=== PATIENT | male | born 1950 | race Caucasian/White ===

== ENCOUNTER 2019-07-05 15:18 | Inpatient (IN) | payer MEDICARE, OTHER ==
[~2019-07-05] VITALS: Ht 172.7 cm; Wt 77.7 kg
[~2019-07-05 15:18] MED LIST: ACET200V11 PO; ARGI500C9 PO; ASPI-611 PO; CARV3.12 PO; CLOP75TA35 PO; FLO0.4C PO; INSU100V36 SQ; LANTUS SQ; LISI30TA4 PO; NITR0.4T48 SL; ZINC50TA4 PO
[2019-07-05 19:35] VITALS: BP 162/91
[2019-07-05] MEDS ORDERED: ondansetron/PF 4mg/2ml inj IV PRN (19:55)
[2019-07-05 21:05] LABS: BASOPHILS % (AUTO) 0.7 % (0-1); EOSINOPHILS # (AUTO) 0.1 X10'3 (0-0.9); HEMOGLOBIN 15.7 g/dl (14.0-17.9); WHITE BLOOD COUNT 6.7 X10'3 (4.5-11.0)
[2019-07-05 21:07] LABS: EOSINOPHILS % (AUTO) 1.1 % (0-6); HEMATOCRIT 48.1 % (42.0-52.0); LYMPHOCYTES # (AUTO) 0.8 X10'3 (1.1-4.8); LYMPHOCYTES % (AUTO) 11.2 % (21-51); MEAN CORPUSCULAR HEMOGLOBIN 25.4 PG (27.0-31.0); MEAN CORPUSCULAR HGB CONC 32.6 g/dL (33.0-36.5); MEAN CORPUSCULAR VOLUME 77.9 FL (78-98); MEAN PLATELET VOLUME 10.1 FL (7.4-10.4); MONOCYTES # (AUTO) 0.8 X10'3 (0-0.9); MONOCYTES % (AUTO) 11.3 % (2-12); NEUTROPHILS # (AUTO) 5.1 X10'3 (1.8-7.7); NEUTROPHILS % (AUTO) 75.7 % (42-75); PLATELET COUNT 157 X10'3 (140-440); RED BLOOD COUNT 6.17 X10'6 (4.70-6.10); RED CELL DISTRIBUTION WIDTH 18.6 % (11.5-14.5)
[2019-07-05 21:12] LABS: ALBUMIN 3.3 G/DL (3.4-5.0); ANION GAP 7 (8-16); BLOOD UREA NITROGEN 87 MG/DL (7-18); BUN/CREATININE RATIO 38.7 (5.4-32.0); CALCIUM 9.3 MG/DL (8.5-10.1); CHLORIDE 105 MMOL/L (99-107); CREATININE 2.25 MG/DL (0.60-1.10); GLUCOSE 125 MG/DL (70-104); POTASSIUM 4.7 MMOL/L (3.5-5.1); SODIUM 142 MMOL/L (135-145); TOTAL CARBON DIOXIDE 30.4 MMOL/L (24-32); eGFR 29 ML/MIN
[2019-07-05 21:38] LABS: ANISOCYTOSIS 1+; MICROCYTOSIS 1+; PLATELET ESTIMATE NORMAL
[2019-07-05 22:00] VITALS: BP 148/85
[2019-07-05 22:04] LABS: HEMOGLOBIN A1C 8.4 % (4.5-6.2)
[2019-07-06 02:00] VITALS: BP 140/87
[2019-07-06] MEDS ORDERED: magnesium 4gm in 100ml NS 100 ML IV PRN (03:50)
[2019-07-06] MEDS ORDERED: ondansetron/PF 4mg/2ml inj IV PRN (03:50)
[2019-07-06] MEDS ORDERED: HYDROcodone/acetaminophen 5mg/325mg tablet PO PRN (03:50)
[2019-07-06] MEDS ORDERED: magnesium Cl slow-release 64mg tablet PO PRN (03:50)
[2019-07-06] MEDS ORDERED: acetaminophen 325mg tablet PO PRN ×2 (03:50)
[2019-07-06] MEDS ORDERED: magnesium 2GM in 50ml NS 50 ML IV PRN (03:50)
[2019-07-06] MEDS ORDERED: potassium CL 10mEq/100ml bag 100 ML IV PRN ×2 (03:50)
[2019-07-06] MEDS ORDERED: potassium Cl 20 mEq SR tablet PO PRN ×2 (03:50)
--- NOTE | 2019-07-06 06:29 | NUR ---
Patient in room PCU 3024. I have received report from JASKARAN Antoine and had the opportunity to ask questions and assume patient care. Patient asleep in bed and in no acute distress.
[2019-07-06 07:00] VITALS: BP 128/81
[2019-07-06] MEDS: K and/or MAG REPLACEMENT MC SCH ×2 (07:29→20:00)
[2019-07-06] MEDS: furosemide 40mg/4ml inj IV SCH ×2 (07:32→20:53)
[2019-07-06] MEDS: heparin, porcine 5000 units/ml vial SQ SCH ×2 (07:34→20:52)
[2019-07-06] MEDS: docusate sod 100mg capsule PO SCH ×3 (07:34→20:52)
[2019-07-06] MEDS: carvedilol 6.25mg tablet PO SCH ×2 (09:46→20:52)
[2019-07-06 11:00] VITALS: BP 123/70
[2019-07-06 11:08] LABS: ALBUMIN 3.1 G/DL (3.4-5.0); ANION GAP 7 (8-16); BLOOD UREA NITROGEN 86 MG/DL (7-18); BUN/CREATININE RATIO 41.3 (5.4-32.0); CALCIUM 8.9 MG/DL (8.5-10.1); CHLORIDE 106 MMOL/L (99-107); CREATININE 2.08 MG/DL (0.60-1.10); GLUCOSE 164 MG/DL (70-104); POTASSIUM 4.9 MMOL/L (3.5-5.1); SODIUM 143 MMOL/L (135-145); TOTAL CARBON DIOXIDE 30.5 MMOL/L (24-32); eGFR 32 ML/MIN
--- NOTE | 2019-07-06 11:31 | NUR ---
Paged Dr. Sims regarding starting patient on hyper/hypoglycemia protocol and to review the patient's medication reconciliation. PAGER ID: [phone] MESSAGE: [phone]. Norris Bell. Can you please review patient's medication reconciliation? And can we start him on the hyper/hypoglycemia protocol? Thank you. Natali JESSICA x [phone]
--- NOTE | 2019-07-06 12:39 | NUR ---
Paged Dr. Sims regarding patient's EF PAGER ID: [phone] MESSAGE: [phone]. Norris Bell. Per shampoo technician, patient's EF is 35%. Thank you. Natali luna [phone]
[2019-07-06] MEDS ORDERED: dextrose 50%-water 50ml dispensing syringe IV PRN ×2 (13:35)
[2019-07-06] MEDS ORDERED: dextrose ORAL solution 15 GM/59 ML bottle PO PRN ×2 (13:35)
[2019-07-06] MEDS ORDERED: glucagon, human recombinant 1mg kit SUBCUT PRN (13:35)
[2019-07-06] MEDS ORDERED: insulin Lispro (HumaLOG) vial - multi-dose SQ SCH (13:35)
[2019-07-06] MEDS ORDERED: MESSAGE TO PHARMACY PO ONE (13:35)
[2019-07-06 15:00] VITALS: BP 120/78
--- NOTE | 2019-07-06 16:00 | NUR ---
DM consult: Pt with A1c 8.4 seen at bedside. Pt reports he sees his PCP for DM management however is hoping to establish an aerial survey technician. Pt reports taking his DM meds per rx and states he checks his BG levels 2-3 times a day. Pt provided with written and verbal DM education with referral to outpatient DM class and RD contact information. RD d/w CM patient's request for information on establishing an aerial survey technician, per CM pt needs to get a referral from PCP and can get additional information by attending the outpatient DM class, d/w patient. Pt endorses a good appetite which is evident with documented 100% PO intake at breakfast this morning. Lunch tray visible during RD visit noted to be about 75% consumed and pt still eating. Pt denies additional food at this time. Noted that patient's diet has been completed after a 1.2 L fluid restriction was ordered, d/w RN. Pt reports BM this morning. Will continue to follow. Addendum: 07/06/19 at [address] Amended: Links added.
[2019-07-06] MEDS ORDERED: ALLO100T PO (16:12)
[2019-07-06] MEDS ORDERED: FURO20TA4 PO (16:12)
[2019-07-06] MEDS ORDERED: METO-395 PO (16:12)
[2019-07-06] MEDS ORDERED: GLIP5TAB13 PO (16:12)
[2019-07-06] MEDS ORDERED: ATOR40TA72 PO (16:12)
[2019-07-06] MEDS ORDERED: ISOS30TA6 PO (16:12)
[2019-07-06] MEDS ORDERED: TRAZ-256 PO (16:19)
[2019-07-06] MEDS ORDERED: POTA-82 PO (16:27)
--- NOTE | 2019-07-06 18:25 | NUR ---
Problems reprioritized. Patient report given, questions answered & plan of care reviewed with JASKARAN Antoine. Patient stable at transfer of care.
[2019-07-06 19:00] VITALS: BP 142/83
[2019-07-06 20:18] LABS: TOTAL PROTEIN,URINE RANDOM 159.3 MG/DL
[2019-07-06 20:26] LABS: CLARITY,URINE CLEAR (Clear); COLOR,URINE YELLOW (Yellow); GLUCOSE, URINE NEGATIVE (Neg); KETONES,URINE NEGATIVE (Neg); LEUKOCYTE ESTERASE ,URINE NEGATIVE (Neg); NITRITES, URINE NEGATIVE (Neg); OCCULT BLOOD,URINE SMALL (Neg); PH,URINE 5.5 (4.8-8.0); PROTEIN,URINE 100 mg/dl (Neg); UROBILINOGEN,URINE 0.2 E.U/dL (0.2-1.0)
[2019-07-06 20:28] LABS: UA COLLECTION TYPE CLN CATCH MIDSTREAM
[2019-07-06 20:30] LABS: BACTERIA,URINE NONE SEEN /HPF (Neg); RBC,URINE 0-2 /HPF (0-2); SQUAMOUS EPITHELIAL CELL,UR NONE SEEN /LPF (FEW); WBC,URINE NONE SEEN /HPF (0-4)
[2019-07-06] MEDS: insulin glargine (Lantus) pen - multi-dose SQ SCH (21:00)
[2019-07-06 21:27] LABS: UA EOSINOPHILS NO EOS /HPF
[2019-07-06 23:00] VITALS: BP 138/79
[2019-07-07 03:00] VITALS: BP 133/89
--- NOTE | 2019-07-07 06:06 | NUR ---
Patient in room PCU 3024. I have received report from Mike Antoine and had the opportunity to ask questions and assume patient care.
[2019-07-07 06:12] LABS: BASOPHILS # (AUTO) 0.1 X10'3 (0-0.2); BASOPHILS % (AUTO) 0.9 % (0-1); EOSINOPHILS # (AUTO) 0.1 X10'3 (0-0.9); EOSINOPHILS % (AUTO) 1.8 % (0-6); HEMATOCRIT 44.1 % (42.0-52.0); HEMOGLOBIN 14.5 g/dl (14.0-17.9); LYMPHOCYTES # (AUTO) 0.8 X10'3 (1.1-4.8); LYMPHOCYTES % (AUTO) 11.5 % (21-51); MEAN CORPUSCULAR HEMOGLOBIN 25.5 PG (27.0-31.0); MEAN CORPUSCULAR HGB CONC 32.8 g/dL (33.0-36.5); MEAN CORPUSCULAR VOLUME 77.6 FL (78-98); MEAN PLATELET VOLUME 10.3 FL (7.4-10.4); MONOCYTES # (AUTO) 0.8 X10'3 (0-0.9); MONOCYTES % (AUTO) 11.5 % (2-12); NEUTROPHILS % (AUTO) 74.3 % (42-75); PLATELET COUNT 121 X10'3 (140-440); RED BLOOD COUNT 5.68 X10'6 (4.70-6.10); RED CELL DISTRIBUTION WIDTH 18.4 % (11.5-14.5); WHITE BLOOD COUNT 6.7 X10'3 (4.5-11.0)
[2019-07-07 06:56] LABS: ALBUMIN 2.9 G/DL (3.4-5.0); ANION GAP 8 (8-16); ANISOCYTOSIS 2+; BLOOD UREA NITROGEN 86 MG/DL (7-18); CALCIUM 9.2 MG/DL (8.5-10.1); CHLORIDE 107 MMOL/L (99-107); GLUCOSE 127 MG/DL (70-104); LARGE PLATELETS FEW; MAGNESIUM 2.3 MG/DL (1.5-2.4); PLATELET ESTIMATE DECREASED; SODIUM 144 MMOL/L (135-145); TOTAL CARBON DIOXIDE 29.4 MMOL/L (24-32); eGFR 32 ML/MIN
[2019-07-07 06:57] LABS: MICROCYTOSIS 1+
[2019-07-07 07:00] VITALS: BP 126/72
[2019-07-07 07:14] LABS: POTASSIUM 5.1 MMOL/L (3.5-5.1)
[2019-07-07] MEDS: heparin, porcine 5000 units/ml vial SQ SCH ×3 (08:00→19:16)
[2019-07-07] MEDS: carvedilol 6.25mg tablet PO SCH ×2 (08:35→19:11)
[2019-07-07] MEDS: docusate sod 100mg capsule PO SCH ×2 (08:35→19:13)
[2019-07-07] MEDS: furosemide 40mg/4ml inj IV SCH ×2 (08:42→16:52)
[2019-07-07] MEDS: K and/or MAG REPLACEMENT MC SCH ×2 (08:46→20:00)
[2019-07-07 11:00] VITALS: BP 129/63
[2019-07-07] MEDS: mineral oil/petrolatum, white cream 113gm jar TP SCH (14:00)
[2019-07-07 15:00] VITALS: BP 128/71
[2019-07-07 16:28] LABS: RHEUM FACTOR QUAL REFLEX TITER NEGATIVE (Neg)
--- NOTE | 2019-07-07 18:29 | NUR ---
Problems reprioritized. Patient report given, questions answered & plan of care reviewed with JASKARAN Pinon.
--- NOTE | 2019-07-07 18:30 | NUR ---
Patient in room PCU 3024. I have received report from Ailyn JESSICA and had the opportunity to ask questions and assume patient care.
[2019-07-07 19:00] VITALS: BP 137/75
[2019-07-07] MEDS: insulin glargine (Lantus) pen - multi-dose SQ SCH (21:00)
[2019-07-07 23:00] VITALS: BP 105/55
[2019-07-08 03:00] VITALS: BP 115/65
--- NOTE | 2019-07-08 05:08 | NUR ---
Pt states he has had zero urinary output this shift w/ a BM. Bladder scan revealed 245ml, pt states he has no urge or bladder discomfort. Will continue to monitor. Addendum: 07/08/19 at 0512 by Zi Schneider RN In correct patient.
--- NOTE | 2019-07-08 06:04 | NUR ---
Patient in room PCU 3024. I have received report from JASKARAN Pinon and had the opportunity to ask questions and assume patient care.
--- NOTE | 2019-07-08 06:17 | NUR ---
Problems reprioritized. Patient report given, questions answered & plan of care reviewed with Ailyn JESSICA
[2019-07-08 06:19] LABS: EOSINOPHILS # (AUTO) 0.2 X10'3 (0-0.9); EOSINOPHILS % (AUTO) 2.7 % (0-6); LYMPHOCYTES # (AUTO) 0.7 X10'3 (1.1-4.8); MONOCYTES # (AUTO) 0.6 X10'3 (0-0.9); RED CELL DISTRIBUTION WIDTH 18.3 % (11.5-14.5)
[2019-07-08 06:23] LABS: BASOPHILS # (AUTO) 0.1 X10'3 (0-0.2); BASOPHILS % (AUTO) 0.9 % (0-1); HEMATOCRIT 42.3 % (42.0-52.0); HEMOGLOBIN 13.9 g/dl (14.0-17.9); LYMPHOCYTES % (AUTO) 11.7 % (21-51); MEAN CORPUSCULAR HEMOGLOBIN 25.4 PG (27.0-31.0); MEAN CORPUSCULAR HGB CONC 32.8 g/dL (33.0-36.5); MEAN CORPUSCULAR VOLUME 77.7 FL (78-98); MEAN PLATELET VOLUME 10.8 FL (7.4-10.4); MONOCYTES % (AUTO) 10.6 % (2-12); NEUTROPHILS # (AUTO) 4.4 X10'3 (1.8-7.7); NEUTROPHILS % (AUTO) 74.1 % (42-75); PLATELET COUNT 127 X10'3 (140-440); RED BLOOD COUNT 5.45 X10'6 (4.70-6.10); WHITE BLOOD COUNT 5.9 X10'3 (4.5-11.0)
[2019-07-08 06:31] LABS: ALBUMIN 2.6 G/DL (3.4-5.0); ANION GAP 9 (8-16); BLOOD UREA NITROGEN 89 MG/DL (7-18); BUN/CREATININE RATIO 42.2 (5.4-32.0); CALCIUM 9.1 MG/DL (8.5-10.1); CHLORIDE 109 MMOL/L (99-107); CREATININE 2.11 MG/DL (0.60-1.10); MAGNESIUM 2.2 MG/DL (1.5-2.4); POTASSIUM 4.2 MMOL/L (3.5-5.1); SODIUM 146 MMOL/L (135-145); TOTAL CARBON DIOXIDE 28.2 MMOL/L (24-32); eGFR 31 ML/MIN
[2019-07-08 06:35] LABS: GLUCOSE 46 MG/DL (70-104)
--- NOTE | 2019-07-08 06:37 | NUR ---
Paged Kerri POZO, anirudh PAGER ID: [phone] MESSAGE: [phone]: Norris Bell has a critical glucose of 46. -Ailyn [phone]
[2019-07-08 07:00] VITALS: BP 129/80
[2019-07-08] MEDS: docusate sod 100mg capsule PO SCH (07:47)
[2019-07-08] MEDS: carvedilol 6.25mg tablet PO SCH (07:50)
[2019-07-08] MEDS: mineral oil/petrolatum, white cream 113gm jar TP SCH (07:53)
[2019-07-08] MEDS: heparin, porcine 5000 units/ml vial SQ SCH (07:53)
[2019-07-08] MEDS ORDERED: isosorbide mononitrate 30mg tab.SR.24H PO SCH (08:00)
[2019-07-08] MEDS ORDERED: atorvastatin 20mg tablet PO SCH (08:00)
[2019-07-08] MEDS ORDERED: furosemide 20MG tablet PO SCH (08:00)
[2019-07-08] MEDS ORDERED: metoprolol succinate 25mg (24-HOUR) SR. Tablet PO SCH (08:00)
[2019-07-08] MEDS: K and/or MAG REPLACEMENT MC SCH (08:00)
[2019-07-08] MEDS ORDERED: tamsulosin 0.4mg capsule PO SCH (08:00)
[2019-07-08] MEDS ORDERED: allopurinol 100mg tablet PO SCH (08:00)
[2019-07-08] MEDS ORDERED: potassium Cl 20 mEq SR tablet PO SCH (08:00)
[2019-07-08] MEDS ORDERED: traZODone 50mg tablet PO SCH (08:00)
[2019-07-08] MEDS ORDERED: zinc sulfate 220mg capsule PO SCH (08:00)
[2019-07-08] MEDS ORDERED: clopidogrel 75mg tablet PO SCH (08:00)
[2019-07-08] MEDS: furosemide 40mg/4ml inj IV SCH (08:07)
[2019-07-08] MEDS ORDERED: sacubitril/valsartan 24mg-26mg tablet PO SCH (09:05)
[2019-07-08 09:22] LABS: GIANT PLATELET FEW; LARGE PLATELETS FEW; PLATELET ESTIMATE NORMAL
[2019-07-08] MEDS ORDERED: FURO-149 PO (10:28)
[2019-07-08] MEDS ORDERED: SACU1TAB PO (10:28)
--- NOTE | 2019-07-08 11:30 | NUR ---
Called to make a follow up appt with pts manager clinical research, Dr. Tello and staff stated pt has not seen physician since 2014 and would need a referral to be re-seen. Staff member at the cardio clinic also stated pt is on collection and needs to pay his bill before he is able to make an appt. Made a follow up appointment with PCP, Twin Ortiz on 07/19/19 at 0915.
--- NOTE | 2019-07-08 12:00 | NUR ---
Jyotsnad Levi PAGER ID: [phone] MESSAGE: [phone]: Norris Bell: Pts pharmacy stated pt may/may not be covered and may need authorization for Entresto 24mg-26mg mike, if covered/authorized wont have stock til Thursday. Kindly advise! -Ailyn [phone]
--- NOTE | 2019-07-08 14:00 | NUR ---
Pt stable for discharge per MD orders. Called [facility] in [place], [place] for medication pick-up. Made follow-up appt with PCP - Dr. Twin Kunz as pt is unable to see his quality checker, Dr. Tello. Pt has not seen Dr. Tello since 2014 and will need a referral from PCP. Pt needs to pay outstanding bill in order to set up an apt with cardio clinic. Discharge instructions given and answered any questions and concerns. All belongings sent with pt. Tele monitor removed. PIV removed, cannula intact. Sent down via wheelchair with aid into a private vehicle with patients friend.
[2019-07-09 11:06] LABS: COMPLEMENT C3, SERUM 139 mg/dL (82-167); COMPLEMENT C4, SERUM 28 mg/dL (14-44); HBSAG SCREEN Negative (Negative); HEPATITIS C ANTIBODY <0.1 s/co ratio (0.0-0.9); IMMUNOGLOBULIN A, QN, SERUM 469 mg/dL (61-437); IMMUNOGLOBULIN G, QN, SERUM 1487 mg/dL (700-1600); IMMUNOGLOBULIN M, QN, SERUM 77 mg/dL (20-172)
[2019-07-09 13:15] LABS: ANTINUCLEAR ANTIBODIES Negative (Negative)
[2019-07-11 08:08] LABS: A/G RATIO 0.9 (0.7-1.7); ALBUMIN 3.1 g/dL (2.9-4.4); BETA GLOBULIN 1.2 g/dL (0.7-1.3); GAMMA GLOBULIN 1.2 g/dL (0.4-1.8); GLOBULIN, TOTAL 3.5 g/dL (2.2-3.9); M-SPIKE Not Observed g/dL (Not Observed); PROTEIN, TOTAL, SERUM 6.6 g/dL (6.0-8.5)
== END 2019-07-08 14:05 | disposition home or self-care (01) | DRG 291 ==
LOC: PCU 3S 19:34
PROVIDERS: ADMIT Internal Medicine Critical Care Medicine; ATTEND Family Medicine
DX: I13.0 Hypertensive heart and chronic kidney disease with heart failure and stage 1 through stage 4 chronic kidney disease, or unspecified chronic kidney disease (principal); I50.23 Acute on chronic systolic (congestive) heart failure; N17.9 Acute kidney failure, unspecified; R18.8 Other ascites; I44.7 Left bundle-branch block, unspecified; I25.5 Ischemic cardiomyopathy; N18.9 Chronic kidney disease, unspecified; E03.9 Hypothyroidism, unspecified; E11.22 Type 2 diabetes mellitus with diabetic chronic kidney disease; E78.5 Hyperlipidemia, unspecified; I25.10 Atherosclerotic heart disease of native coronary artery without angina pectoris; I65.29 Occlusion and stenosis of unspecified carotid artery; N40.0 Benign prostatic hyperplasia without lower urinary tract symptoms; Z60.2 Problems related to living alone; E11.51 Type 2 diabetes mellitus with diabetic peripheral angiopathy without gangrene; N50.89 Other specified disorders of the male genital organs; Z79.4 Long term (current) use of insulin; Z95.1 Presence of aortocoronary bypass graft; I25.2 Old myocardial infarction; Z79.899 Other long term (current) drug therapy; Z87.891 Personal history of nicotine dependence
CPT/HCPCS: 36415; 76775; 80048; 81001; 82570; 82784; 82948; 83036; 83735; 83880; 84155; 84156; 84165; 84300; 85025; 85651; 86038; 86160; 86334; 86430; 86803; 87081; 87207; 87340; 93005; 93306; G0378; J1644; J1815; J1940

== ENCOUNTER 2019-11-09 02:55 | Inpatient (IN) | payer MEDICARE, OTHER ==
[~2019-11-09] VITALS: Ht 172.7 cm; Wt 66.0 kg
[~2019-11-09 02:55] MED LIST changes: -ACET200V11 PO; +ALLO100T PO; -ASPI-611 PO; +ATOR40TA72 PO; -CARV3.12 PO; +FURO-149 PO; +GLIP5TAB13 PO; +ISOS30TA6 PO; -LISI30TA4 PO; +METO-395 PO; +POTA-82 PO; +SACU1TAB PO; +TRAZ-256 PO; +ZINC50TA15 PO; -ZINC50TA4 PO
--- NOTE | 2019-11-09 03:11 | NUR ---
Pt's. lower extremities in poor condition with extensive blistering.
[2019-11-09] MEDS ORDERED: proCHLORperazine 10 MG/2 ml inj IV ONE (03:15)
[2019-11-09 03:32] LABS: BASOPHILS % (AUTO) 0.5 % (0-1); EOSINOPHILS # (AUTO) 0.1 X10'3 (0-0.9); EOSINOPHILS % (AUTO) 1.2 % (0-6); HEMATOCRIT 41.5 % (42.0-52.0); HEMOGLOBIN 13.4 g/dl (14.0-17.9); LYMPHOCYTES # (AUTO) 0.6 X10'3 (1.1-4.8); LYMPHOCYTES % (AUTO) 8.8 % (21-51); MEAN CORPUSCULAR HEMOGLOBIN 27.9 PG (27.0-31.0); MEAN CORPUSCULAR HGB CONC 32.4 g/dL (33.0-36.5); MONOCYTES # (AUTO) 0.8 X10'3 (0-0.9); MONOCYTES % (AUTO) 11.5 % (2-12); NEUTROPHILS # (AUTO) 5.6 X10'3 (1.8-7.7); PLATELET COUNT 135 X10'3 (140-440); RED BLOOD COUNT 4.82 X10'6 (4.70-6.10); RED CELL DISTRIBUTION WIDTH 19.2 % (11.5-14.5); WHITE BLOOD COUNT 7.2 X10'3 (4.5-11.0)
[2019-11-09 03:42] LABS: PARTIAL THROMBOPLASTIN TIME 35 SECONDS (22-32)
[2019-11-09] MEDS ORDERED: FURO40TA4 PO (03:43)
[2019-11-09] MEDS ORDERED: FLO0.4C PO (03:44)
[2019-11-09] MEDS ORDERED: METO50TA7 PO (03:46)
[2019-11-09 03:52] LABS: ALANINE AMINOTRANSFERASE 41 U/L (12-78); ALBUMIN 3.2 G/DL (3.4-5.0); ALBUMIN/GLOBULIN RATIO 0.8 (1.1-1.5); ALKALINE PHOSPHATASE 290 IU/L (46-116); ANION GAP 15 (8-16); ASPARTATE AMINO TRANSFERASE 34 U/L (10-37); BILIRUBIN,TOTAL 0.9 MG/DL (0.1-1.0); CALCIUM 8.4 MG/DL (8.5-10.1); CHLORIDE 106 MMOL/L (99-107); CREATININE 5.23 MG/DL (0.60-1.10); GLUCOSE 193 MG/DL (70-104); POTASSIUM 5.4 MMOL/L (3.5-5.1); SODIUM 140 MMOL/L (135-145); TOTAL CARBON DIOXIDE 18.8 MMOL/L (24-32); TOTAL PROTEIN 7.4 G/DL (6.4-8.2); eGFR 11 ML/MIN
[2019-11-09 03:56] LABS: MAGNESIUM 2.7 MG/DL (1.5-2.4)
[2019-11-09 03:57] LABS: BLOOD UREA NITROGEN 209 MG/DL (7-18); PHOSPHORUS 10.3 MG/DL (2.3-4.5)
[2019-11-09] MEDS ORDERED: ondansetron/PF 4mg/2ml inj IV PRN (04:30)
[2019-11-09] MEDS ORDERED: acetaminophen 325mg tablet PO PRN ×2 (04:30)
--- NOTE | 2019-11-09 06:28 | NUR ---
Problems reprioritized. Patient report given, questions answered & plan of care reviewed with JASKARAN Smith.
--- NOTE | 2019-11-09 06:31 | NUR ---
Patient in room PCU 3020. I have received report from Kandace JESSICA and had the opportunity to ask questions and assume patient care.
[2019-11-09 07:00] VITALS: BP_SYST 121; BP_SYST 138; BP_DIAS 74; BP_DIAS 75
--- NOTE | 2019-11-09 09:00 | NUR ---
Patient is noted to have a part of left thumb removed. A scab is noted as well. Will continue to monitor,
[2019-11-09 09:11] LABS: CLARITY,URINE CLEAR (Clear); COLOR,URINE YELLOW (Yellow); GLUCOSE, URINE NEGATIVE (Neg); KETONES,URINE NEGATIVE (Neg); LEUKOCYTE ESTERASE ,URINE NEGATIVE (Neg); NITRITES, URINE NEGATIVE (Neg); OCCULT BLOOD,URINE NEGATIVE (Neg); PROTEIN,URINE TRACE mg/dl (Neg); UROBILINOGEN,URINE 0.2 E.U/dL (0.2-1.0)
[2019-11-09 09:12] LABS: UA COLLECTION TYPE NON-SPECIFIED
[2019-11-09 09:17] LABS: TOTAL PROTEIN,URINE RANDOM 46.6 MG/DL
[2019-11-09] MEDS: CefTRIAXone 2gm/D5W 50ml 50 ML IV SCH (09:30)
[2019-11-09 09:33] LABS: SQUAMOUS EPITHELIAL CELL,UR FEW /LPF (FEW)
[2019-11-09 09:34] LABS: BACTERIA,URINE FEW /HPF (Neg); HYALINE CASTS 0-3 /LPF (NEGATIVE); RBC,URINE 0-2 /HPF (0-2); WBC,URINE 0-4 /HPF (0-4)
[2019-11-09 09:36] LABS: AMORPHOUS URATES 1+
--- NOTE | 2019-11-09 09:54 | NUR ---
Called Dr. Seals in regards to patients low heart 50s. made awre of high potassium 5.4. VS: BP:121/75, HR 58 O2 99%RA. Patient is asymptomatic, a/o X3. Will continue to monitor.
[2019-11-09 09:59] LABS: UA EOSINOPHILS NO EOS /HPF
[2019-11-09] MEDS ORDERED: heparin 1,000unit/ml 10ml vial 10 ML IV ONE (10:16)
[2019-11-09] MEDS ORDERED: normal saline 1000ml 250 ML IV PRN (10:16)
[2019-11-09] MEDS ORDERED: epoetin 20,000 units/ml inj IV ONE (10:20)
[2019-11-09] MEDS ORDERED: heparin 1,000 units/ml 10ml inj IV ONE ×2 (10:20→16:34)
[2019-11-09] MEDS ORDERED: heparin 1,000 units/ml 10ml inj HE ONE ×4 (10:20→16:34)
--- NOTE | 2019-11-09 10:48 | NUR ---
Dr. Seals at bedside with patient. explained the pros and cons of needing dialysis to make labs right. Patient was able to ask questions and get answers appropriately. Patient seemed to be unnerved and resistant to treatment and agreed that it is best a this time. Patient was made NPO and scheduled a cath insertion and dialysis hopefully today, at latest tomorrow. Will continue to monitor.
[2019-11-09 11:00] VITALS: BP 113/53
[2019-11-09] MEDS: HYDROcodone/acetaminophen 5mg/325mg tablet PO PRN (11:10)
[2019-11-09] MEDS ORDERED: METO50TA16 PO (12:48)
[2019-11-09] MEDS ORDERED: SACU1TAB PO (13:08)
[2019-11-09] MEDS ORDERED: FURO80TA3 PO (13:11)
--- NOTE | 2019-11-09 13:33 | NUR ---
Patients blood sugar 208 after breakfast. Patient is currently NPO due to a cath being inserted for dialysis. Waiting to treatment per protocol from policy til NPO is lifted and patient is currently eating effectively. Will continue to monitor.
--- NOTE | 2019-11-09 15:04 | NUR ---
Called Dr. Seals in regards to review med reconcile medications. Direction was to fax to ICU for him to review. Will continue to monitor.
[2019-11-09] MEDS ORDERED: LIDOcaine 1%/PF 5ML 10 MG/ML VIAL ONE (16:08)
[2019-11-09 18:00] VITALS: BP 127/62
--- NOTE | 2019-11-09 18:23 | NUR ---
Problems reprioritized. Patient report given, questions answered & plan of care reviewed with patel JESSICA.
--- NOTE | 2019-11-09 18:30 | NUR ---
Patient in room PCU 3020. I have received report from JASKARAN Smith and had the opportunity to ask questions and assume patient care.
--- NOTE | 2019-11-09 18:50 | NUR ---
Dr. Jaramillo was called to see if patient can start on insulin since he met the diabetic protocol, waiting for call back for orders.
[2019-11-09] MEDS ORDERED: dextrose ORAL solution 15 GM/59 ML bottle PO PRN (20:30)
[2019-11-09] MEDS ORDERED: glucagon, human recombinant 1mg kit SUBCUT PRN (20:30)
[2019-11-09] MEDS ORDERED: dextrose 50%-water 50ml dispensing syringe IV PRN ×2 (20:30)
[2019-11-09] MEDS ORDERED: MESSAGE TO PHARMACY PO ONE (20:30)
[2019-11-09] MEDS: lactobacillus rhamnosus 10,000 MMU CELLS/CAPSULE PO SCH (21:09)
[2019-11-09] MEDS: insulin glargine (Lantus) pen - multi-dose SQ SCH (21:26)
[2019-11-09 22:00] VITALS: BP 149/70
[2019-11-09 22:18] LABS: HEMOGLOBIN A1C 8.3 % (4.5-6.2)
[2019-11-09] MEDS: temazepam 15mg capsule PO PRN (22:27)
[2019-11-10 02:10] VITALS: BP 152/67
[2019-11-10 05:37] LABS: BASOPHILS % (AUTO) 0.7 % (0-1); EOSINOPHILS # (AUTO) 0.1 X10'3 (0-0.9); EOSINOPHILS % (AUTO) 1.5 % (0-6); HEMATOCRIT 37.4 % (42.0-52.0); HEMOGLOBIN 12.2 g/dl (14.0-17.9); LYMPHOCYTES # (AUTO) 0.4 X10'3 (1.1-4.8); LYMPHOCYTES % (AUTO) 6.9 % (21-51); MEAN CORPUSCULAR HGB CONC 32.8 g/dL (33.0-36.5); MEAN CORPUSCULAR VOLUME 85.4 FL (78-98); MONOCYTES # (AUTO) 0.9 X10'3 (0-0.9); MONOCYTES % (AUTO) 13.6 % (2-12); NEUTROPHILS # (AUTO) 4.9 X10'3 (1.8-7.7); NEUTROPHILS % (AUTO) 77.3 % (42-75); PLATELET COUNT 115 X10'3 (140-440); RED BLOOD COUNT 4.37 X10'6 (4.70-6.10); RED CELL DISTRIBUTION WIDTH 18.3 % (11.5-14.5); WHITE BLOOD COUNT 6.4 X10'3 (4.5-11.0)
[2019-11-10 05:49] LABS: ALANINE AMINOTRANSFERASE 30 U/L (12-78); ALBUMIN 2.6 G/DL (3.4-5.0); ALBUMIN/GLOBULIN RATIO 0.7 (1.1-1.5); ALKALINE PHOSPHATASE 239 IU/L (46-116); ANION GAP 11 (8-16); ASPARTATE AMINO TRANSFERASE 28 U/L (10-37); BILIRUBIN,TOTAL 0.9 MG/DL (0.1-1.0); BLOOD UREA NITROGEN 126 MG/DL (7-18); BUN/CREATININE RATIO 38.7 (5.4-32.0); CALCIUM 8.2 MG/DL (8.5-10.1); CHLORIDE 107 MMOL/L (99-107); CREATININE 3.26 MG/DL (0.60-1.10); GLUCOSE 119 MG/DL (70-104); MAGNESIUM 2.2 MG/DL (1.5-2.4); SODIUM 142 MMOL/L (135-145); TOTAL CARBON DIOXIDE 24.5 MMOL/L (24-32); TOTAL PROTEIN 6.5 G/DL (6.4-8.2); eGFR 19 ML/MIN
--- NOTE | 2019-11-10 06:05 | NUR ---
Problems reprioritized. Patient report given, questions answered & plan of care reviewed with JASKARAN Smith.
--- NOTE | 2019-11-10 06:33 | NUR ---
Patient in room PCU 3020. I have received report from Sylvia JESSICA and had the opportunity to ask questions and assume patient care.
[2019-11-10 07:00] VITALS: BP 139/65
[2019-11-10] MEDS ORDERED: heparin 1,000unit/ml 10ml vial 10 ML IV ONE (08:00)
[2019-11-10] MEDS ORDERED: normal saline 1000ml 250 ML IV PRN (08:00)
[2019-11-10] MEDS ORDERED: epoetin 20,000 units/ml inj IV ONE (08:00)
[2019-11-10] MEDS: lactobacillus rhamnosus 10,000 MMU CELLS/CAPSULE PO SCH ×2 (08:12→19:11)
[2019-11-10] MEDS: CefTRIAXone 2gm/D5W 50ml 50 ML IV SCH (08:12)
[2019-11-10 11:00] VITALS: BP 95/61
--- NOTE | 2019-11-10 11:10 | NUR ---
Patient receiving dialysis. requirements manager Andra is at bedside in pursuit of orders of dialysis. Heparin was unable to scan. Pharmacy was notified, Rachel, confirmed that it would not scan and to manually enter the medications. I also spoke with pharmacists as well. Rachel spoke to Andra JESSICA and tried to resolve the situation which resulted in cancelling the order and administer medication. Resource nurse Natali was consulted and CHarge nurse in training Sarah was also notified. We will continue to monitor.
[2019-11-10] MEDS: HYDROcodone/acetaminophen 5mg/325mg tablet PO PRN ×2 (12:02→13:03)
[2019-11-10 15:00] VITALS: BP 133/67
--- NOTE | 2019-11-10 17:59 | NUR ---
Malnutrition/DM consults: Pt reports 2-13 lb wt loss with decreased appetite per malnutrition risk screen with RN. Pt with scaled wt hx of 77.7 kg taken 07/08 with bed scale, current standing scaled wt is 73.1 kg, this is non-significant wt loss of 6% in four months. Pt seen at bedside provided with written and verbal DM education. Pt states he doesn't currently have a physician that he sees regularly for DM management however states he still takes his medications per rx and checks his BG levels q day. Pt states his blood sugar is improving. Per records pt with A1c of 8.4% in June of this year, current A1c is 8.3%. RD encouraged pt to f/u with an MD for diabetes management. Pt expresses desire to better manage his diabetes. Pt admit with ESRD, started on dialysis this admit. Pt currently on a renal diet documented with average 75% PO intake meeting nutrient needs and pt endorses a good appetite stating he's getting full from his meals. Pt with no documented significant decrease in muscle strength or edema. Pt currently lacks a minimum of two criteria for malnutrition. 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 Pt provided with written and verbal protein education for wound healing needs as well as dialysis needs. Informed pt that he will likely see a renal dietitian if he is to continue dialysis on an outpatient basis. RD contact information provided. Pt denies food allergies, difficulty chewing/swallowing, or constipation/diarrhea. LBM 11/09. Will continue to follow. Recommendations: 1) Continue renal diet; monitor need for the addition of CHO controlled diet, BG levels currently well controlled 2) Monitor need for ONS/additional protein 3) Phos binder with MD approval given elevated Phos 7.0 mg/dL today 4) Bowel care PRN 5) Scaled wts per rx Addendum: 11/10/19 at [address] Amended: Links added.
[2019-11-10 18:00] VITALS: BP 124/59
--- NOTE | 2019-11-10 18:23 | NUR ---
Problems reprioritized. Patient report given, questions answered & plan of care reviewed with Marcy JESSICA.
--- NOTE | 2019-11-10 18:30 | NUR ---
Received report from Sarah JESSICA. Assumed patient care. Patient is awake and alert on room air sitting in a chair eating his dinner. In no apparent distress. Call items of frequent use within reach. Will continue to monitor for changes.
[2019-11-10] MEDS: insulin Lispro (HumaLOG) vial - multi-dose SQ SCH (19:12)
[2019-11-10] MEDS: temazepam 15mg capsule PO PRN (21:26)
[2019-11-10] MEDS: insulin glargine (Lantus) pen - multi-dose SQ SCH (21:32)
[2019-11-10 22:00] VITALS: BP 117/55
[2019-11-11 02:00] VITALS: BP 120/66
[2019-11-11 05:52] LABS: BASOPHILS % (AUTO) 0.5 % (0-1); EOSINOPHILS # (AUTO) 0.1 X10'3 (0-0.9); EOSINOPHILS % (AUTO) 1.1 % (0-6); HEMATOCRIT 36.8 % (42.0-52.0); HEMOGLOBIN 12.2 g/dl (14.0-17.9); LYMPHOCYTES # (AUTO) 0.5 X10'3 (1.1-4.8); LYMPHOCYTES % (AUTO) 7.8 % (21-51); MEAN CORPUSCULAR HEMOGLOBIN 28.2 PG (27.0-31.0); MEAN CORPUSCULAR HGB CONC 33.2 g/dL (33.0-36.5); MEAN CORPUSCULAR VOLUME 84.9 FL (78-98); MEAN PLATELET VOLUME 10.4 FL (7.4-10.4); MONOCYTES # (AUTO) 1.1 X10'3 (0-0.9); MONOCYTES % (AUTO) 15.7 % (2-12); NEUTROPHILS # (AUTO) 5.2 X10'3 (1.8-7.7); NEUTROPHILS % (AUTO) 74.9 % (42-75); PLATELET COUNT 124 X10'3 (140-440); RED BLOOD COUNT 4.33 X10'6 (4.70-6.10); RED CELL DISTRIBUTION WIDTH 18.2 % (11.5-14.5)
[2019-11-11 06:05] LABS: ALANINE AMINOTRANSFERASE 22 U/L (12-78); ALBUMIN 2.6 G/DL (3.4-5.0); ALBUMIN/GLOBULIN RATIO 0.7 (1.1-1.5); ALKALINE PHOSPHATASE 238 IU/L (46-116); ANION GAP 9 (8-16); ASPARTATE AMINO TRANSFERASE 30 U/L (10-37); BILIRUBIN,TOTAL 0.9 MG/DL (0.1-1.0); BLOOD UREA NITROGEN 69 MG/DL (7-18); BUN/CREATININE RATIO 31.7 (5.4-32.0); CHLORIDE 107 MMOL/L (99-107); CREATININE 2.18 MG/DL (0.60-1.10); GLUCOSE 123 MG/DL (70-104); PHOSPHORUS 4.7 MG/DL (2.3-4.5); POTASSIUM 3.7 MMOL/L (3.5-5.1); SODIUM 142 MMOL/L (135-145); TOTAL CARBON DIOXIDE 26.1 MMOL/L (24-32); TOTAL PROTEIN 6.3 G/DL (6.4-8.2); eGFR 30 ML/MIN
--- NOTE | 2019-11-11 06:20 | NUR ---
Patient in room PCU 3020. I have received report from Marcy JESSICA and had the opportunity to ask questions and assume patient care.
--- NOTE | 2019-11-11 06:20 | NUR ---
Patient in room PCU 3020. I have received report from Marcy JESSICA and had the opportunity to ask questions and assume patient care.
--- NOTE | 2019-11-11 06:40 | NUR ---
Reported off to Mathieu RN and Sarah RN. Patient is awake and alert on room air sitting at the side of the bed. Call light and items of frequent use within reach.
[2019-11-11 07:00] VITALS: BP 142/71
[2019-11-11 08:11] LABS: HBSAG SCREEN Negative (Negative)
[2019-11-11] MEDS: lactobacillus rhamnosus 10,000 MMU CELLS/CAPSULE PO SCH ×2 (08:16→21:40)
[2019-11-11] MEDS: HYDROcodone/acetaminophen 5mg/325mg tablet PO PRN (08:16)
[2019-11-11] MEDS: CefTRIAXone 2gm/D5W 50ml 50 ML IV SCH (08:17)
[2019-11-11 11:00] VITALS: BP 111/61
--- NOTE | 2019-11-11 11:50 | NUR ---
Pt's blood sugar is 69.
--- NOTE | 2019-11-11 12:00 | NUR ---
1 orange juice with 1 packet of sugar added given to pt to drink. Will recheck blood sugar in 20 minutes.
[2019-11-11 15:00] VITALS: BP 126/73
--- NOTE | 2019-11-11 16:01 | NUR ---
Faxed Medication reconcile to ICU for Dr. Seals to review medications. Will continue to monitor.
--- NOTE | 2019-11-11 17:45 | NUR ---
Patient was given green scrubs due to an event earlier today. Patient refused to put them on. Will continue to monitor.
--- NOTE | 2019-11-11 18:42 | NUR ---
Problems reprioritized. Patient report given, questions answered & plan of care reviewed with Sherly JESSICA.
--- NOTE | 2019-11-11 18:45 | NUR ---
Patient in room PCU 3020. I have received report from MARY LOU JESSICA and had the opportunity to ask questions and assume patient care.
[2019-11-11 19:00] VITALS: BP 110/65
[2019-11-11] MEDS: insulin Lispro (HumaLOG) vial - multi-dose SQ SCH (19:28)
[2019-11-11] MEDS ORDERED: nitroGLYCERIN 0.4mg SUBLingual tab SL PRN (20:10)
[2019-11-11] MEDS ORDERED: insulin glargine (Lantus) pen - multi-dose SQ SCH (21:00)
[2019-11-11] MEDS: temazepam 15mg capsule PO PRN (21:51)
[2019-11-11] MEDS: insulin glargine (Lantus) pen - multi-dose SQ SCH (21:51)
[2019-11-11 23:00] VITALS: BP 122/62
[2019-11-12 03:00] VITALS: BP 129/79
[2019-11-12 03:02] LABS: BASOPHILS # (AUTO) 0.1 X10'3 (0-0.2); BASOPHILS % (AUTO) 0.7 % (0-1); EOSINOPHILS # (AUTO) 0.1 X10'3 (0-0.9); EOSINOPHILS % (AUTO) 0.7 % (0-6); HEMATOCRIT 39.7 % (42.0-52.0); HEMOGLOBIN 12.9 g/dl (14.0-17.9); LYMPHOCYTES # (AUTO) 0.5 X10'3 (1.1-4.8); LYMPHOCYTES % (AUTO) 6.4 % (21-51); MEAN CORPUSCULAR HEMOGLOBIN 27.8 PG (27.0-31.0); MEAN CORPUSCULAR HGB CONC 32.6 g/dL (33.0-36.5); MEAN CORPUSCULAR VOLUME 85.4 FL (78-98); MEAN PLATELET VOLUME 9.5 FL (7.4-10.4); MONOCYTES # (AUTO) 1.1 X10'3 (0-0.9); NEUTROPHILS # (AUTO) 5.9 X10'3 (1.8-7.7); NEUTROPHILS % (AUTO) 78.2 % (42-75); PLATELET COUNT 113 X10'3 (140-440); RED BLOOD COUNT 4.65 X10'6 (4.70-6.10); RED CELL DISTRIBUTION WIDTH 18.5 % (11.5-14.5); WHITE BLOOD COUNT 7.6 X10'3 (4.5-11.0)
[2019-11-12 03:19] LABS: ALANINE AMINOTRANSFERASE 26 U/L (12-78); ALBUMIN 2.8 G/DL (3.4-5.0); ALBUMIN/GLOBULIN RATIO 0.7 (1.1-1.5); ALKALINE PHOSPHATASE 256 IU/L (46-116); ANION GAP 12 (8-16); ASPARTATE AMINO TRANSFERASE 41 U/L (10-37); BILIRUBIN,TOTAL 0.9 MG/DL (0.1-1.0); BLOOD UREA NITROGEN 70 MG/DL (7-18); BUN/CREATININE RATIO 28.7 (5.4-32.0); CALCIUM 8.5 MG/DL (8.5-10.1); CHLORIDE 106 MMOL/L (99-107); CREATININE 2.44 MG/DL (0.60-1.10); GLUCOSE 71 MG/DL (70-104); PHOSPHORUS 4.8 MG/DL (2.3-4.5); POTASSIUM 3.9 MMOL/L (3.5-5.1); SODIUM 144 MMOL/L (135-145); TOTAL CARBON DIOXIDE 25.7 MMOL/L (24-32); eGFR 27 ML/MIN
[2019-11-12 04:05] VITALS: BP 129/80
--- NOTE | 2019-11-12 04:08 | NUR ---
SENIOR COST ESTIMATOR REPORTED PATIENT HAD 7 BEATS RUN OF [place], CALLED [facility] AND MADE AWARE OF THE 7 BEAT RUN OF [place] VITAL SIGNS BP 129/80 HR 89 RR 18, SAT 97% RA PATIENT ASYMPTOMATIC. NO NEW ORDERS MADE.
[2019-11-12 06:00] VITALS: BP 117/65
--- NOTE | 2019-11-12 06:30 | NUR ---
Problems reprioritized. Patient report given, questions answered & plan of care reviewed with CHIDI JESSICA.
--- NOTE | 2019-11-12 06:47 | NUR ---
Patient in room PCU 3020. I have received report from JASKARAN Dubois and had the opportunity to ask questions and assume patient care.
[2019-11-12] MEDS: dextrose ORAL solution 15 GM/59 ML bottle PO PRN (07:21)
[2019-11-12] MEDS: lactobacillus rhamnosus 10,000 MMU CELLS/CAPSULE PO SCH ×2 (07:22→20:59)
[2019-11-12] MEDS: zinc sulfate 220mg capsule PO SCH (07:22)
[2019-11-12] MEDS: sacubitril/valsartan 24mg-26mg tablet PO SCH ×2 (07:22→20:59)
[2019-11-12] MEDS: allopurinol 100mg tablet PO SCH (07:22)
[2019-11-12] MEDS: tamsulosin 0.4mg capsule PO SCH (07:23)
[2019-11-12] MEDS: atorvastatin 20mg tablet PO SCH (07:23)
[2019-11-12] MEDS: isosorbide mononitrate 30mg tab.SR.24H PO SCH (07:24)
[2019-11-12] MEDS: HYDROcodone/acetaminophen 5mg/325mg tablet PO PRN ×2 (07:24→20:58)
[2019-11-12] MEDS: CefTRIAXone 2gm/D5W 50ml 50 ML IV SCH (07:24)
[2019-11-12] MEDS: metoprolol tartrate 25mg tablet PO SCH ×2 (07:25→21:02)
[2019-11-12] MEDS ORDERED: heparin 1,000unit/ml 10ml vial 10 ML IV ONE (08:00)
[2019-11-12] MEDS ORDERED: heparin 1,000 units/ml 10ml inj IV ONE (08:00)
[2019-11-12] MEDS ORDERED: epoetin 20,000 units/ml inj IV ONE (08:00)
[2019-11-12] MEDS ORDERED: heparin 1,000 units/ml 10ml inj HE ONE ×2 (08:00)
[2019-11-12] MEDS ORDERED: glipizide 5mg tablet PO SCH (08:00)
[2019-11-12 11:00] VITALS: BP 136/70
[2019-11-12] MEDS ORDERED: loperamide 2mg capsule PO ONE (12:20)
[2019-11-12] MEDS ORDERED: loperamide 2mg capsule PO PRN (12:20)
--- NOTE | 2019-11-12 12:57 | NUR ---
Pt refused temperature check at 1100 VS
[2019-11-12 15:00] VITALS: BP 136/74
[2019-11-12 18:15] VITALS: BP 123/69
--- NOTE | 2019-11-12 18:49 | NUR ---
Patient in room PCU 3020. I have received report from Obdulia Mckeon and had the opportunity to ask questions and assume patient care. Addendum: 11/12/19 at 1849 by Katherine Butler RN Amended: Links added.
--- NOTE | 2019-11-12 18:50 | NUR ---
Problems reprioritized. Patient report given, questions answered & plan of care reviewed with JASKARAN Murphy.
[2019-11-12] MEDS: temazepam 15mg capsule PO PRN (20:59)
[2019-11-12] MEDS: insulin glargine (Lantus) pen - multi-dose SQ SCH (21:00)
[2019-11-12] MEDS: furosemide 40mg tablet PO SCH (21:01)
--- NOTE | 2019-11-13 | NUR ---
resting eyes closed without changes
--- NOTE | 2019-11-13 01:17 | NUR ---
pt awoke c/o pain medicated for it with norco po.12/25.
[2019-11-13] MEDS: HYDROcodone/acetaminophen 5mg/325mg tablet PO PRN ×4 (01:22→21:37)
[2019-11-13 02:10] VITALS: BP 131/38
--- NOTE | 2019-11-13 03:15 | NUR ---
awake reminded to use urinal
--- NOTE | 2019-11-13 04:36 | NUR ---
resting no chg
[2019-11-13 06:00] VITALS: BP 135/65
[2019-11-13 06:14] LABS: BASOPHILS % (AUTO) 0.7 % (0-1); EOSINOPHILS # (AUTO) 0.1 X10'3 (0-0.9); EOSINOPHILS % (AUTO) 1.5 % (0-6); HEMATOCRIT 36.5 % (42.0-52.0); LYMPHOCYTES # (AUTO) 0.6 X10'3 (1.1-4.8); LYMPHOCYTES % (AUTO) 8.3 % (21-51); MEAN CORPUSCULAR HEMOGLOBIN 28.1 PG (27.0-31.0); MEAN CORPUSCULAR HGB CONC 32.9 g/dL (33.0-36.5); MEAN CORPUSCULAR VOLUME 85.3 FL (78-98); MEAN PLATELET VOLUME 10.6 FL (7.4-10.4); MONOCYTES % (AUTO) 13.9 % (2-12); NEUTROPHILS # (AUTO) 5.2 X10'3 (1.8-7.7); NEUTROPHILS % (AUTO) 75.6 % (42-75); PLATELET COUNT 110 X10'3 (140-440); RED BLOOD COUNT 4.28 X10'6 (4.70-6.10); RED CELL DISTRIBUTION WIDTH 18.5 % (11.5-14.5); WHITE BLOOD COUNT 6.9 X10'3 (4.5-11.0)
--- NOTE | 2019-11-13 06:33 | NUR ---
Problems reprioritized. Patient report given, questions answered & plan of care reviewed with Mihcelle Mckeon. Addendum: 11/13/19 at 0634 by Katherine Butler RN Amended: Links added.
[2019-11-13 06:34] LABS: ALANINE AMINOTRANSFERASE 23 U/L (12-78); ALBUMIN 2.6 G/DL (3.4-5.0); ALBUMIN/GLOBULIN RATIO 0.7 (1.1-1.5); ALKALINE PHOSPHATASE 228 IU/L (46-116); ANION GAP 12 (8-16); ASPARTATE AMINO TRANSFERASE 33 U/L (10-37); BILIRUBIN,TOTAL 0.8 MG/DL (0.1-1.0); BLOOD UREA NITROGEN 78 MG/DL (7-18); BUN/CREATININE RATIO 35.3 (5.4-32.0); CALCIUM 8.7 MG/DL (8.5-10.1); CHLORIDE 107 MMOL/L (99-107); CREATININE 2.21 MG/DL (0.60-1.10); GLUCOSE 121 MG/DL (70-104); MAGNESIUM 2.1 MG/DL (1.5-2.4); PHOSPHORUS 4.6 MG/DL (2.3-4.5); POTASSIUM 3.8 MMOL/L (3.5-5.1); SODIUM 145 MMOL/L (135-145); TOTAL CARBON DIOXIDE 26.3 MMOL/L (24-32); TOTAL PROTEIN 6.5 G/DL (6.4-8.2); eGFR 30 ML/MIN
[2019-11-13] MEDS ORDERED: heparin 1,000 units/ml 10ml inj IV ONE (08:00)
[2019-11-13] MEDS ORDERED: heparin 1,000unit/ml 10ml vial 10 ML IV ONE (08:00)
[2019-11-13] MEDS ORDERED: epoetin 20,000 units/ml inj IV ONE (08:00)
[2019-11-13] MEDS ORDERED: heparin 1,000 units/ml 10ml inj HE ONE ×2 (08:00)
[2019-11-13] MEDS ORDERED: normal saline 1000ml 250 ML IV PRN (08:00)
[2019-11-13] MEDS: lactobacillus rhamnosus 10,000 MMU CELLS/CAPSULE PO SCH ×2 (09:12→21:35)
[2019-11-13] MEDS: allopurinol 100mg tablet PO SCH (09:12)
[2019-11-13] MEDS: isosorbide mononitrate 30mg tab.SR.24H PO SCH (09:13)
[2019-11-13] MEDS: tamsulosin 0.4mg capsule PO SCH (09:13)
[2019-11-13] MEDS: atorvastatin 20mg tablet PO SCH (09:13)
[2019-11-13] MEDS: furosemide 40mg tablet PO SCH ×2 (09:14→21:36)
[2019-11-13] MEDS: sacubitril/valsartan 24mg-26mg tablet PO SCH ×2 (09:14→21:35)
[2019-11-13] MEDS: metoprolol tartrate 25mg tablet PO SCH ×2 (09:14→21:36)
[2019-11-13] MEDS: zinc sulfate 220mg capsule PO SCH (09:14)
[2019-11-13] MEDS: insulin Lispro (HumaLOG) vial - multi-dose SQ SCH ×2 (09:20→14:20)
[2019-11-13 11:00] VITALS: BP 130/68
[2019-11-13 15:00] VITALS: BP 118/60
[2019-11-13 18:00] VITALS: BP 128/63
--- NOTE | 2019-11-13 18:30 | NUR ---
Patient in room PCU 3020. I have received report from Deb JESSICA and had the opportunity to ask questions and assume patient care.
[2019-11-13] MEDS: insulin glargine (Lantus) pen - multi-dose SQ SCH (21:00)
[2019-11-13] MEDS: dextrose ORAL solution 15 GM/59 ML bottle PO PRN (21:44)
[2019-11-13 22:00] VITALS: BP 152/78
[2019-11-13 23:08] LABS: ALBUMIN 3.2 G/DL (3.4-5.0); ANION GAP 10 (8-16); BLOOD UREA NITROGEN 36 MG/DL (7-18); BUN/CREATININE RATIO 23.1 (5.4-32.0); CALCIUM 8.5 MG/DL (8.5-10.1); CHLORIDE 103 MMOL/L (99-107); CREATININE 1.56 MG/DL (0.60-1.10); GLUCOSE 158 MG/DL (70-104); POTASSIUM 4.1 MMOL/L (3.5-5.1); SODIUM 142 MMOL/L (135-145); TOTAL CARBON DIOXIDE 29.4 MMOL/L (24-32); eGFR 45 ML/MIN
--- NOTE | 2019-11-13 23:17 | NUR ---
At 2130, accu check was 57. Gave 1 x dose of dextrose per protocol. When retook, blood sugar was 59. Pt. c/o machine not working properly. Got another machine, Checked opposite hand and blood sugar was 336. Rechecked on original hand accu check was in the 60's. Patient refused to drink another dose of dextrose. called md and received order for BMP lab. Blood sugar shows at 139 . Patient showed no s/s of low blood sugar thru out this whole epsiode. A&Ox3. Addendum: 11/13/19 at 2324 by Makayla Morocho RN Blood sugar 158 with lab draw, NOT 139 as above.
[2019-11-13] MEDS: temazepam 15mg capsule PO PRN (23:33)
[2019-11-14 02:00] VITALS: BP 123/66
[2019-11-14] MEDS: HYDROcodone/acetaminophen 5mg/325mg tablet PO PRN ×3 (02:44→22:30)
[2019-11-14 06:00] VITALS: BP 129/70
--- NOTE | 2019-11-14 06:30 | NUR ---
Patient in room PCU 3020. I have received report from zoe underwood and had the opportunity to ask questions and assume patient care.
[2019-11-14 06:36] LABS: BASOPHILS % (AUTO) 0.6 % (0-1); EOSINOPHILS # (AUTO) 0.1 X10'3 (0-0.9); EOSINOPHILS % (AUTO) 1.1 % (0-6); HEMATOCRIT 38.6 % (42.0-52.0); HEMOGLOBIN 12.5 g/dl (14.0-17.9); LYMPHOCYTES # (AUTO) 0.6 X10'3 (1.1-4.8); LYMPHOCYTES % (AUTO) 9.4 % (21-51); MEAN CORPUSCULAR HGB CONC 32.5 g/dL (33.0-36.5); MEAN CORPUSCULAR VOLUME 86.3 FL (78-98); MEAN PLATELET VOLUME 10.5 FL (7.4-10.4); MONOCYTES # (AUTO) 0.9 X10'3 (0-0.9); MONOCYTES % (AUTO) 12.5 % (2-12); NEUTROPHILS # (AUTO) 5.2 X10'3 (1.8-7.7); NEUTROPHILS % (AUTO) 76.4 % (42-75); PLATELET COUNT 114 X10'3 (140-440); RED BLOOD COUNT 4.47 X10'6 (4.70-6.10); RED CELL DISTRIBUTION WIDTH 18.4 % (11.5-14.5); WHITE BLOOD COUNT 6.8 X10'3 (4.5-11.0)
[2019-11-14 06:45] LABS: ALANINE AMINOTRANSFERASE 25 U/L (12-78); ALBUMIN 2.7 G/DL (3.4-5.0); ALBUMIN/GLOBULIN RATIO 0.7 (1.1-1.5); ALKALINE PHOSPHATASE 237 IU/L (46-116); ANION GAP 7 (8-16); ASPARTATE AMINO TRANSFERASE 38 U/L (10-37); BILIRUBIN,TOTAL 1.1 MG/DL (0.1-1.0); BLOOD UREA NITROGEN 37 MG/DL (7-18); BUN/CREATININE RATIO 23.9 (5.4-32.0); CALCIUM 8.4 MG/DL (8.5-10.1); CHLORIDE 105 MMOL/L (99-107); CREATININE 1.55 MG/DL (0.60-1.10); GLUCOSE 93 MG/DL (70-104); MAGNESIUM 1.7 MG/DL (1.5-2.4); PHOSPHORUS 3.3 MG/DL (2.3-4.5); POTASSIUM 3.7 MMOL/L (3.5-5.1); SODIUM 143 MMOL/L (135-145); TOTAL PROTEIN 6.7 G/DL (6.4-8.2); eGFR 45 ML/MIN
--- NOTE | 2019-11-14 06:45 | NUR ---
Problems reprioritized. Patient report given, questions answered & plan of care reviewed with Brayden RN.
[2019-11-14] MEDS: lactobacillus rhamnosus 10,000 MMU CELLS/CAPSULE PO SCH ×2 (08:45→20:22)
[2019-11-14] MEDS: tamsulosin 0.4mg capsule PO SCH (08:46)
[2019-11-14] MEDS: sacubitril/valsartan 24mg-26mg tablet PO SCH ×2 (08:46→20:22)
[2019-11-14] MEDS: furosemide 40mg tablet PO SCH ×2 (08:47→20:19)
[2019-11-14] MEDS: isosorbide mononitrate 30mg tab.SR.24H PO SCH (08:47)
[2019-11-14] MEDS: atorvastatin 20mg tablet PO SCH (08:48)
[2019-11-14] MEDS: metoprolol tartrate 25mg tablet PO SCH ×2 (08:49→20:22)
[2019-11-14] MEDS: zinc sulfate 220mg capsule PO SCH (08:49)
[2019-11-14] MEDS: allopurinol 100mg tablet PO SCH (08:50)
[2019-11-14 11:00] VITALS: BP 121/62
--- NOTE | 2019-11-14 14:19 | NUR ---
Reassessment: Pt PO increased to 75-100% meals for 2 days w/ 50-75% avg fluctuating but significant decrease in PO yesterday 0-25% avg meals while on HD. NCS diet added yesterday; GIGI d/w RN regarding change to carb controlled/renal diet since no concentrated sweets is not a DM diet if MD agreeable. Pt noted to have low Glu last night as well w/ Glu mostly not meeting protocol without DM diet this admit. May benefit from removal of DM restriction as well if MD agreeable since tolerating prior renal diet. LBM 11/11. Will continue to monitor. Recommendations: 1) Liberalize to only renal diet restriction as medically indicated 2) Monitor need for ONS/additional protein 3) Phos binder if MD agreeable on HD 4) Bowel care PRN 5) Scaled wts per rx Addendum: 11/14/19 at [address] Amended: Links added.
[2019-11-14 15:00] VITALS: BP 100/48
--- NOTE | 2019-11-14 15:55 | NUR ---
PAGER ID: [phone] MESSAGE: DR. CHAWLA, [id number], HE WANTS HIS TO BRING HIS CPAP HERE FOR USE, RT SLEEP APNEA. IS THAT OKAY? ABDIFATAH [id number]. TY
[2019-11-14 18:00] VITALS: BP 123/64
--- NOTE | 2019-11-14 18:35 | NUR ---
Problems reprioritized. Patient report given, questions answered & plan of care reviewed with JASKARAN PIZANO.
--- NOTE | 2019-11-14 18:41 | NUR ---
Patient in room PCU 3020. I have received report from Brayden JESSICA and had the opportunity to ask questions and assume patient care.
[2019-11-14] MEDS: insulin glargine (Lantus) pen - multi-dose SQ SCH (21:00)
[2019-11-14 22:33] VITALS: BP 121/62
[2019-11-15 02:00] VITALS: BP 127/69
--- NOTE | 2019-11-15 06:23 | NUR ---
Problems reprioritized. Patient report given, questions answered & plan of care reviewed with Ashish JESSICA.
--- NOTE | 2019-11-15 06:38 | NUR ---
Patient in room PCU 3020. I have received report from Awilda JESSICA and had the opportunity to ask questions and assume patient care.
[2019-11-15 07:00] VITALS: BP 124/60
[2019-11-15] MEDS: metoprolol tartrate 25mg tablet PO SCH ×2 (07:35→21:02)
[2019-11-15] MEDS: atorvastatin 20mg tablet PO SCH (07:35)
[2019-11-15] MEDS: isosorbide mononitrate 30mg tab.SR.24H PO SCH (07:36)
[2019-11-15] MEDS: HYDROcodone/acetaminophen 5mg/325mg tablet PO PRN ×3 (07:36→21:08)
[2019-11-15] MEDS: sacubitril/valsartan 24mg-26mg tablet PO SCH ×2 (07:36→20:56)
[2019-11-15] MEDS: tamsulosin 0.4mg capsule PO SCH (07:37)
[2019-11-15] MEDS: lactobacillus rhamnosus 10,000 MMU CELLS/CAPSULE PO SCH ×2 (07:37→20:56)
[2019-11-15] MEDS: allopurinol 100mg tablet PO SCH (07:37)
[2019-11-15] MEDS: zinc sulfate 220mg capsule PO SCH (07:37)
[2019-11-15] MEDS ORDERED: heparin 1,000 units/ml 10ml inj HE ONE ×2 (08:00)
[2019-11-15] MEDS ORDERED: normal saline 1000ml 250 ML IV PRN (08:00)
[2019-11-15] MEDS ORDERED: epoetin 20,000 units/ml inj IV ONE (08:00)
[2019-11-15] MEDS ORDERED: heparin 1,000 units/ml 10ml inj IV ONE (08:00)
[2019-11-15] MEDS ORDERED: heparin 1,000unit/ml 10ml vial 10 ML IV ONE (08:00)
[2019-11-15] MEDS ORDERED: diphenhydrAMINE 50 mg/ml inj IV ONE (08:50)
--- NOTE | 2019-11-15 08:59 | NUR ---
Received call from Dannielle JESSICA from [facility]. She asked me to let Ashish JESSICA know that the order for benadryl that she placed was to be given before dialysis, not right now. I relayed the message to Ashish JESSICA as well as Ann-Marie Gruber RN.
[2019-11-15 09:37] LABS: HEMATOCRIT 38.7 % (42.0-52.0); HEMOGLOBIN 12.5 g/dl (14.0-17.9); MEAN CORPUSCULAR HEMOGLOBIN 27.7 PG (27.0-31.0); MEAN CORPUSCULAR HGB CONC 32.3 g/dL (33.0-36.5); MEAN CORPUSCULAR VOLUME 85.7 FL (78-98); MEAN PLATELET VOLUME 9.7 FL (7.4-10.4); PLATELET COUNT 130 X10'3 (140-440); RED BLOOD COUNT 4.52 X10'6 (4.70-6.10); RED CELL DISTRIBUTION WIDTH 18.1 % (11.5-14.5); WHITE BLOOD COUNT 7.3 X10'3 (4.5-11.0)
[2019-11-15] MEDS: furosemide 40mg tablet PO SCH ×2 (10:50→20:56)
[2019-11-15 11:00] VITALS: BP 117/56
[2019-11-15 15:18] VITALS: BP 102/46
[2019-11-15 18:00] VITALS: BP 104/38
--- NOTE | 2019-11-15 18:45 | NUR ---
Patient in room PCU 3020. I have received report from Ashish JESSICA and had the opportunity to ask questions and assume patient care.
[2019-11-15] MEDS: insulin glargine (Lantus) pen - multi-dose SQ SCH (21:11)
[2019-11-15 22:00] VITALS: BP 111/55
[2019-11-15] MEDS: temazepam 15mg capsule PO PRN (22:15)
[2019-11-16] VITALS (7 sets, daily range): BP systolic 87–184; BP diastolic 40–81
[2019-11-16] MEDS: HYDROcodone/acetaminophen 5mg/325mg tablet PO PRN ×5 (01:16→21:54)
--- NOTE | 2019-11-16 06:16 | NUR ---
Problems reprioritized. Patient report given, questions answered & plan of care reviewed with Ashish JESSICA.
--- NOTE | 2019-11-16 06:26 | NUR ---
Patient in room PCU 3020. I have received report from Awilda JESSICA and had the opportunity to ask questions and assume patient care.
[2019-11-16] MEDS: dextrose ORAL solution 15 GM/59 ML bottle PO PRN (07:36)
--- NOTE | 2019-11-16 08:00 | NUR ---
Patient had blood sugar of 63 at 0700 after meeting protocol and receiving 12 units at night. Patient stated that he usually only takes about 3 units after a meal at home.
[2019-11-16] MEDS: atorvastatin 20mg tablet PO SCH (08:32)
[2019-11-16] MEDS: allopurinol 100mg tablet PO SCH (08:32)
[2019-11-16] MEDS: zinc sulfate 220mg capsule PO SCH (08:32)
[2019-11-16] MEDS: furosemide 40mg tablet PO SCH ×2 (08:32→21:53)
[2019-11-16] MEDS: metoprolol tartrate 25mg tablet PO SCH ×2 (08:32→21:54)
[2019-11-16] MEDS: lactobacillus rhamnosus 10,000 MMU CELLS/CAPSULE PO SCH ×2 (08:32→21:51)
[2019-11-16] MEDS: isosorbide mononitrate 30mg tab.SR.24H PO SCH (08:32)
[2019-11-16] MEDS: sacubitril/valsartan 24mg-26mg tablet PO SCH ×2 (08:33→21:51)
[2019-11-16] MEDS: tamsulosin 0.4mg capsule PO SCH (08:33)
--- NOTE | 2019-11-16 18:39 | NUR ---
Problems reprioritized. Patient report given, questions answered & plan of care reviewed with Sheryl JESSICA.
--- NOTE | 2019-11-16 18:40 | NUR ---
Patient in room PCU 3020. I have received report from MAYELIN JESSICA and had the opportunity to ask questions and assume patient care.
[2019-11-16] MEDS: insulin glargine (Lantus) pen - multi-dose SQ SCH (21:00)
[2019-11-16] MEDS: temazepam 15mg capsule PO PRN (21:54)
[2019-11-17] MEDS: HYDROcodone/acetaminophen 5mg/325mg tablet PO PRN ×3 (02:01→16:05)
[2019-11-17 03:00] VITALS: BP 116/68
[2019-11-17 06:00] VITALS: BP 123/63
[2019-11-17 06:40] LABS: BASOPHILS % (AUTO) 0.7 % (0-1); EOSINOPHILS # (AUTO) 0.1 X10'3 (0-0.9); EOSINOPHILS % (AUTO) 1.5 % (0-6); HEMATOCRIT 38.5 % (42.0-52.0); HEMOGLOBIN 12.5 g/dl (14.0-17.9); LYMPHOCYTES # (AUTO) 0.7 X10'3 (1.1-4.8); LYMPHOCYTES % (AUTO) 11.4 % (21-51); MEAN CORPUSCULAR HEMOGLOBIN 28.2 PG (27.0-31.0); MEAN CORPUSCULAR HGB CONC 32.5 g/dL (33.0-36.5); MEAN CORPUSCULAR VOLUME 86.9 FL (78-98); MEAN PLATELET VOLUME 10.3 FL (7.4-10.4); MONOCYTES # (AUTO) 0.9 X10'3 (0-0.9); MONOCYTES % (AUTO) 15.4 % (2-12); NEUTROPHILS # (AUTO) 4.3 X10'3 (1.8-7.7); PLATELET COUNT 99 X10'3 (140-440); RED BLOOD COUNT 4.43 X10'6 (4.70-6.10); RED CELL DISTRIBUTION WIDTH 17.9 % (11.5-14.5)
--- NOTE | 2019-11-17 06:44 | NUR ---
Problems reprioritized. Patient report given, questions answered & plan of care reviewed with GIACOMO JESSICA.
[2019-11-17 06:50] LABS: ALANINE AMINOTRANSFERASE 29 U/L (12-78); ALBUMIN 2.7 G/DL (3.4-5.0); ALBUMIN/GLOBULIN RATIO 0.7 (1.1-1.5); ALKALINE PHOSPHATASE 254 IU/L (46-116); ANION GAP 7 (8-16); ASPARTATE AMINO TRANSFERASE 48 U/L (10-37); BILIRUBIN,TOTAL 0.9 MG/DL (0.1-1.0); BLOOD UREA NITROGEN 49 MG/DL (7-18); BUN/CREATININE RATIO 23.9 (5.4-32.0); CALCIUM 8.6 MG/DL (8.5-10.1); CHLORIDE 101 MMOL/L (99-107); CREATININE 2.05 MG/DL (0.60-1.10); GLUCOSE 82 MG/DL (70-104); MAGNESIUM 1.9 MG/DL (1.5-2.4); PHOSPHORUS 4.5 MG/DL (2.3-4.5); POTASSIUM 4.2 MMOL/L (3.5-5.1); SODIUM 135 MMOL/L (135-145); TOTAL CARBON DIOXIDE 27.1 MMOL/L (24-32); TOTAL PROTEIN 6.6 G/DL (6.4-8.2); eGFR 33 ML/MIN
[2019-11-17] MEDS ORDERED: heparin 1,000 units/ml 10ml inj HE ONE ×2 (08:00)
[2019-11-17] MEDS ORDERED: heparin 1,000unit/ml 10ml vial 10 ML IV ONE (08:00)
[2019-11-17] MEDS ORDERED: normal saline 1000ml 250 ML IV PRN (08:00)
[2019-11-17 09:35] LABS: PLATELET ESTIMATE DECREASED; TOTAL CELLS COUNTED 100
[2019-11-17] MEDS: tamsulosin 0.4mg capsule PO SCH (09:35)
[2019-11-17] MEDS: furosemide 40mg tablet PO SCH (09:35)
[2019-11-17] MEDS: atorvastatin 20mg tablet PO SCH (09:35)
[2019-11-17] MEDS: isosorbide mononitrate 30mg tab.SR.24H PO SCH (09:35)
[2019-11-17] MEDS: zinc sulfate 220mg capsule PO SCH (09:35)
[2019-11-17] MEDS: allopurinol 100mg tablet PO SCH (09:36)
[2019-11-17 09:37] LABS: ANISOCYTOSIS 1+; ELLIPTOCYTES 1+
[2019-11-17] MEDS: metoprolol tartrate 25mg tablet PO SCH (09:37)
[2019-11-17] MEDS: lactobacillus rhamnosus 10,000 MMU CELLS/CAPSULE PO SCH (09:38)
[2019-11-17] MEDS: sacubitril/valsartan 24mg-26mg tablet PO SCH (09:38)
[2019-11-17] MEDS ORDERED: diphenhydrAMINE 25mg capsule PO ONE (12:45)
[2019-11-17] MEDS ORDERED: FOLI0.8C PO (13:55)
[2019-11-17] MEDS ORDERED: FOLI0.8T19 PO (13:55)
[2019-11-17 15:00] VITALS: BP 104/41
--- NOTE | 2019-11-17 18:33 | NUR ---
Patient in room PCU 3020. I have received report from Tran JESSICA and had the opportunity to ask questions and assume patient care.
--- NOTE | 2019-11-17 19:19 | NUR ---
Provided discharge instructions and discontinued IV, all belongings gathered and patient escorted via wheelchair to ride in the front of the hospital.
== END 2019-11-17 19:10 | disposition home or self-care (01) | DRG 291 ==
LOC: ER 02:57 → ED HOLD 04:54 → PCU 3S 06:03
PROC: 0JH63XZ Insertion of Tunneled Vascular Access Device into Chest Subcutaneous Tissue and Fascia, Percutaneous Approach (ICD-10-PCS; principal; 2019-11-09)
PROC: 02H633Z Insertion of Infusion Device into Right Atrium, Percutaneous Approach (ICD-10-PCS; 2019-11-09)
PROC: B548ZZA Ultrasonography of Superior Vena Cava, Guidance (ICD-10-PCS; 2019-11-09)
DX: I13.2 Hypertensive heart and chronic kidney disease with heart failure and with stage 5 chronic kidney disease, or end stage renal disease (principal); N18.6 End stage renal disease; I50.22 Chronic systolic (congestive) heart failure; E87.70 Fluid overload, unspecified; E87.5 Hyperkalemia; I25.10 Atherosclerotic heart disease of native coronary artery without angina pectoris; D64.9 Anemia, unspecified; G89.29 Other chronic pain; E11.22 Type 2 diabetes mellitus with diabetic chronic kidney disease; M54.9 Dorsalgia, unspecified; E78.00 Pure hypercholesterolemia, unspecified; Z79.4 Long term (current) use of insulin; Z87.891 Personal history of nicotine dependence; Z91.15 Patient's noncompliance with renal dialysis; Z95.1 Presence of aortocoronary bypass graft
CPT/HCPCS: 36415; 36558; 71045; 76937; 77001; 80048; 80053; 81001; 82570; 82948; 83036; 83605; 83735; 83935; 84100; 84133; 84145; 84156; 84300; 85025; 85027; 85610; 85730; 86705; 86706; 87040; 87081; 87207; 87324; 87340; 87449; 90935; 93005; 97110; 97116; 97162; 97530; 99285; A9270; C1750; C1769; C1894; G0378; J0696; J0780; J1200; J1644; J1815; J2150; Q0163